=== PATIENT | male | born 1980 | race Hispanic/Latino ===

== ENCOUNTER 2022-05-10 15:16 | Emergency (ER) | payer OTHER ==
[~2022-05-10] VITALS: Ht 188 cm; Wt 153.3 kg
[2022-05-10] MEDS ORDERED: TETANUS/DIPHTHERIA TOX ADULT 0.5 ML SYR IM ONE (15:45)
[2022-05-10] MEDS ORDERED: TETANUS/DIPHTHERIA TOX ADULT 0.5 ML SYR ONE (15:53)
[2022-05-10] MEDS ORDERED: LIDOCAINE HCL 1% LOCAL INJ 20 ML VIAL ONE (15:53)
[2022-05-10] MEDS ORDERED: BACITRACIN ZINC 0.9GM TP ONE (15:54)
== END 2022-05-10 16:06 | disposition home or self-care (01) ==
LOC: FSED 15:51
DX: S60.112A Contusion of left thumb with damage to nail, initial encounter (principal); W22.8XXA Striking against or struck by other objects, initial encounter; Y92.89 Other specified places as the place of occurrence of the external cause; Z98.84 Bariatric surgery status
CPT/HCPCS: 90471; 90714; 99283; J2001